=== PATIENT | female | born 1995 | race Caucasian/White ===

== ENCOUNTER 2018-04-18 02:42 | Emergency (ER) | payer OTHER ==
[2018-04-18] MEDS ORDERED: NACL 0.9% 1000 ML 1,000 ML IV ONE (03:06)
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
[2018-04-18] MEDS ORDERED: SUBLIMAZE IV ONE (03:23)
[2018-04-18 03:34] LABS: Basophils % (Auto) 0.5 % (0.0-1.8); Eosinophils # (Auto) 0.3 K/mm3 (0.0-0.4); Eosinophils % (Auto) 4.2 % (0.0-4.3); Hematocrit 36.2 % (30.3-42.9); Hemoglobin 12.7 gm/dl (10.1-14.3); Lymphocytes # (Auto) 2.4 K/mm3 (1.2-5.4); Mean Corpuscular HGB Conc 35 % (30-34); Mean Corpuscular Volume 86 fl (79-97); Monocytes # (Auto) 0.4 K/mm3 (0.0-0.8); Monocytes % (Auto) 4.9 % (0.0-7.3); Platelet Count 250 K/mm3 (140-440); Red Blood Count 4.19 M/mm3 (3.65-5.03)
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
[2018-04-18 03:43] LABS: BUN/Creatinine Ratio 28; Blood Urea Nitrogen 11 mg/dL (7-17); Calcium 8.7 mg/dL (8.4-10.2); Hemolysis Index 40
[2018-04-18 05:35] VITALS: BP 109/78
== END 2018-04-18 05:52 | disposition other institution (70) ==
LOC: ED 02:42 → EEVIPCON 02:42 → ED 05:52
DX: S01.81XA Laceration without foreign body of other part of head, initial encounter (principal); Z91.013 Allergy to seafood; Z88.0 Allergy status to penicillin; Z88.1 Allergy status to other antibiotic agents; Z88.2 Allergy status to sulfonamides; Z88.5 Allergy status to narcotic agent; Y04.2XXA Assault by strike against or bumped into by another person, initial encounter; Y93.89 Activity, other specified; Y92.89 Other specified places as the place of occurrence of the external cause; Y99.8 Other external cause status
CPT/HCPCS: 36415; 71045; 80048; 85025; 96374; 99285; G0480; J3010; J7030; 80320